=== PATIENT | male | born 1980 | race Caucasian/White ===

== ENCOUNTER → 2017-01-23 | Outpatient (CLI) | payer OTHER ==
--- NOTE | 2017-01-23 08:58 | DI ---
LEFT ANKLE, 01/23/2017 7:31 AM: Clinical History: Acute left ankle pain. Previous Exam: None at this facility. 3 views are submitted. There is mild soft tissue swelling over the lateral malleolus. There is no acu te fracture or dislocation. A small joint effusion is present. There are bony densities at the tip of the medial malleolus and the lateral malleolus indicating previous injury. There is very mild wideni ng of the medial aspect of the ankle joint suggesting laxity of the deltoid ligament. Arthritic morin es are present along the dorsal aspect of the neck of the talus and the anterior margin of the distal tibia. Readin. Soft tissue swelling laterally with a small ankle effusion. There is no acute fracture or disloca tion. 2. Old injuries to the deltoid ligament and the tibiofibular ligaments with suggestion of laxity of the deltoid ligament.
== END ==
LOC: MOB RAD 07:41
DX: M25.572 Pain in left ankle and joints of left foot (principal); E79.0 Hyperuricemia without signs of inflammatory arthritis and tophaceous disease
CPT/HCPCS: 36415; 73610; 84550